=== PATIENT | female | born 1965 | race Caucasian/White ===

== ENCOUNTER → 2016-11-20 | Outpatient (CLI) | payer MEDICARE, BC ==
[2016-11-20 08:39] LABS: CH 33.6; CHCM 31.5; HCT 46.2 % (34.0-46.0); HDW 2.56; HGB 14.5 gm/dL (11.4-16.0); Hypochromasia Slight; MCH 33.6 pg (25.0-35.0); MCHC 31.4 g/dL (31.0-37.0); MCV 107.2 fL (80.0-100.0); Macrocytosis Marked; Mean Platelet Volume 7.9; RBC 4.31 m/uL (3.80-5.40); RDW 15.9 % (11.5-15.5); WBC 8.9 k/uL (3.8-10.6)
[2016-11-20 08:43] LABS: ALT 58 U/L (9-52); AST 37 U/L (14-36); Alkaline Phosphatase 89 U/L (38-126); Anion Gap 9 mmol/L; Blood Urea Nitrogen 18 mg/dL (7-17); Calcium 8.7 mg/dL (8.4-10.2); Carbon Dioxide 32 mmol/L (22-30); Chloride 103 mmol/L (98-107); Cholesterol 235 mg/dL (<200); Glucose 85 mg/dL (74-99); HDL Cholesterol 56 mg/dL (40-60); Non-African American GFR(MDRD) >60 (>60 ml/min/1.73 sqM); Potassium 4.3 mmol/L (3.5-5.1); Sodium 144 mmol/L (137-145); Total Bilirubin 0.7 mg/dL (0.2-1.3); Total Protein 7.3 g/dL (6.3-8.2); Triglycerides 186 mg/dL (<150)
[2016-11-20 08:59] LABS: Appearance,Urine Cloudy (Clear); Bacteria,Urine Rare /hpf; Bilirubin,Urine Negative (Negative); Glucose,Urine (UA) Negative (Negative); Ketones,Urine Negative (Negative); Leukocyte Esterase,Urine Small (Negative); Mucus,Urine Rare /hpf; Nitrite,Urine Negative (Negative); PH, Urine 5.5 (5.0-8.0); Particle Count 8940; Protein,Urine Trace (Negative); Specific Gravity,Urine 1.022 (1.001-1.035); Squamous Epithelial Cell,Urine 12 /hpf (0-4); UA Billing (MACRO vs. MICRO) MICRO; Urobilinogen,Urine <2.0 mg/dL (<2.0); WBC,Urine 5 /hpf (0-5)
--- NOTE | 2016-11-20 09:18 | XR ---
EXAMINATION TYPE: XR chest 2V DATE OF EXAM: 11/20/2016 8:32 AM COMPARISON: Chest x-ray 22 April 2012 HISTORY: COPD TECHNIQUE: Frontal and lateral views of the chest are obtained. FINDINGS: Lung volumes are low. Heart size is accentuated. No pneumothorax or pleural effusion is ev ident. Patchy basilar density is present. Pulmonary vascularity and jackie not significantly changed. IMPRESSION: Expiratory exam, findings suggest basilar atelectasis versus pneumonia. Follow-up is rec ommended.
== END | disposition home or self-care (01) ==
LOC: LABWHC1 07:50
PROVIDERS: ATTEND Internal Medicine
DX: J44.9 Chronic obstructive pulmonary disease, unspecified (principal); Z00.00 Encounter for general adult medical examination without abnormal findings; I11.9 Hypertensive heart disease without heart failure; E03.9 Hypothyroidism, unspecified; R35.0 Frequency of micturition
CPT/HCPCS: 36415; 71020; 80053; 80061; 81001; 84439; 84443; 85027

== ENCOUNTER → 2017-04-22 | Outpatient (CLI) | payer MEDICARE, BC | END | disposition home or self-care (01) | LOC: LABWHC1 11:57 | PROVIDERS: ATTEND Internal Medicine | DX: E03.9 Hypothyroidism, unspecified (principal) | CPT/HCPCS: 36415; 84439; 84443 ==

== ENCOUNTER → 2018-02-15 | Outpatient (CLI) | payer MEDICARE, BC ==
[2018-02-15 09:03] LABS: HCT 43.8 % (34.0-46.0); HGB 13.7 gm/dL (11.4-16.0); MCH 31.7 pg (25.0-35.0); MCHC 31.3 g/dL (31.0-37.0); MCV 101.4 fL (80.0-100.0); Macrocytosis Slight; Mean Platelet Volume 8.2; Platelet Count 258 k/uL (150-450); RBC 4.32 m/uL (3.80-5.40); RDW 14.4 % (11.5-15.5); WBC 9.1 k/uL (3.8-10.6)
[2018-02-15 09:58] LABS: ALT 30 U/L (9-52); AST 22 U/L (14-36); Albumin 3.5 g/dL (3.5-5.0); Alkaline Phosphatase 94 U/L (38-126); Anion Gap 9 mmol/L; Blood Urea Nitrogen 14 mg/dL (7-17); Calcium 8.8 mg/dL (8.4-10.2); Carbon Dioxide 32 mmol/L (22-30); Chloride 104 mmol/L (98-107); Cholesterol 179 mg/dL (<200); Glucose 88 mg/dL (74-99); HDL Cholesterol 49 mg/dL (40-60); LDL Cholesterol,Calculated 98 mg/dL (0-99); Potassium 4.2 mmol/L (3.5-5.1); Sodium 145 mmol/L (137-145); Total Bilirubin 0.4 mg/dL (0.2-1.3); Total Protein 6.7 g/dL (6.3-8.2); Triglycerides 158 mg/dL (<150)
[2018-02-15 10:10] LABS: T4, Free (Free Thyroxine) 1.22 ng/dL (0.78-2.19)
== END | disposition home or self-care (01) ==
LOC: LABWHC1 08:17
PROVIDERS: ATTEND Internal Medicine
DX: Z00.01 Encounter for general adult medical examination with abnormal findings (principal); E03.9 Hypothyroidism, unspecified; E78.2 Mixed hyperlipidemia; J44.9 Chronic obstructive pulmonary disease, unspecified; E66.1 Drug-induced obesity
CPT/HCPCS: 36415; 80053; 80061; 84439; 84443; 85027

== ENCOUNTER → 2018-07-08 | Outpatient (CLI) | payer MEDICARE, BC ==
--- NOTE | 2018-07-09 12:09 | MM ---
Reason for exam: screening (asymptomatic). Last mammogram was performed 2 years and 7 months ago. History: Patient is postmenopausal and is nulliparous. Physical Findings: A clinical breast exam by your physician is recommended on an annual basis and results should be correlated with mammographic findings. MG Screening Mammo w CAD Bilateral CC and MLO view(s) were taken. Prior study comparison: November 23, 2015, bilateral MG screening mammo w CAD. March 31, 2014, bilateral MG screening mammo w CAD. There are scattered fibroglandular densities. Stable benign calcifications. There is no discrete abnormality. No significant changes when compared with prior studies. ASSESSMENT: Benign, BI-RAD 2 RECOMMENDATION: Routine screening mammogram of both breasts in 1 year.
== END | disposition home or self-care (01) ==
LOC: RADMAMWWP 14:18 → EEVIPCON 14:40
PROVIDERS: ATTEND Internal Medicine
DX: Z12.31 Encounter for screening mammogram for malignant neoplasm of breast (principal); K21.0 Gastro-esophageal reflux disease with esophagitis
CPT/HCPCS: 77067; 82272

== ENCOUNTER → 2019-03-25 | Outpatient (CLI) | payer MEDICARE, BC ==
[2019-03-25 08:51] LABS: HCT 50.6 % (34.0-46.0); HGB 15.6 gm/dL (11.4-16.0); Hypochromasia Slight; MCHC 30.8 g/dL (31.0-37.0); MCV 103.8 fL (80.0-100.0); Macrocytosis Slight; Mean Platelet Volume 8.4; Platelet Count 271 k/uL (150-450); RBC 4.87 m/uL (3.80-5.40); RDW 15.4 % (11.5-15.5); WBC 9.1 k/uL (3.8-10.6)
[2019-03-25 17:06] LABS: Albumin 3.9 g/dL (3.80-4.90); Albumin/Globulin Ratio 1.39 (1.60-3.17); Anion Gap 11.5 mmol/L (4.00-12.00); Carbon Dioxide 26.5 mmol/L (21.6-31.8); Globulin 2.8 g/dL (1.6-3.3); LDL Cholesterol,Calculated 114.8 mg/dL (0.0-131.0); Potassium 4.3 mmol/L (3.5-5.5); Total Bilirubin 0.3 mg/dL (0.2-1.2); Total Protein 6.7 g/dL (6.2-8.2); VLDL Calculation 23.2 mg/dL (5.00-40.00)
[2019-03-25 17:13] LABS: T4, Free (Free Thyroxine) 1.6 ng/dL (0.80-1.80)
== END | disposition home or self-care (01) ==
LOC: LABWHC1 08:24
PROVIDERS: ATTEND Internal Medicine
DX: Z00.00 Encounter for general adult medical examination without abnormal findings (principal); E03.9 Hypothyroidism, unspecified; E66.1 Drug-induced obesity; E78.2 Mixed hyperlipidemia
CPT/HCPCS: 36415; 80053; 80061; 84439; 84443; 85027

== ENCOUNTER → 2020-06-28 | Outpatient (CLI) | payer MEDICARE, BC ==
[2020-06-28 08:49] LABS: Basophils # (A) 0.1 k/uL (0-0.2); Basophils % (A) 1 %; Eosinophils # (A) 0.2 k/uL (0-0.7); Eosinophils % (A) 2 %; HCT 46.8 % (34.0-46.0); HGB 14.7 gm/dL (11.4-16.0); Lymphocytes # (A) 2.1 k/uL (1.0-4.8); Lymphocytes % (A) 22 %; MCH 32.2 pg (25.0-35.0); MCHC 31.4 g/dL (31.0-37.0); MCV 102.6 fL (80.0-100.0); Macrocytosis Slight; Mean Platelet Volume 8.8; Monocytes # (A) 0.8 k/uL (0-1.0); Monocytes % (A) 9 %; Neutrophils # (A) 6.1 k/uL (1.3-7.7); Neutrophils % (A) 64 %; Platelet Count 211 k/uL (150-450); RBC 4.56 m/uL (3.80-5.40); RDW 14.1 % (11.5-15.5); WBC 9.6 k/uL (3.8-10.6)
[2020-06-28 15:51] LABS: Albumin 3.8 g/dL (3.80-4.90); Albumin/Globulin Ratio 1.27 (1.60-3.17); BUN/Creat Ratio 14.44 Ratio (12.00-20.00); Calcium 8.8 mg/dL (8.7-10.3); Chol/HDL Ratio 3.89; LDL Cholesterol,Calculated 104.6 mg/dL (0.0-131.0); Non-African American GFR(CKD) 72.5 (60.0-200.0); Potassium 4.5 mmol/L (3.5-5.5); Total Bilirubin 0.4 mg/dL (0.2-1.2); Total Protein 6.8 g/dL (6.2-8.2); VLDL Calculation 28.4 mg/dL (5.00-40.00)
== END | disposition home or self-care (01) ==
LOC: LABWHC1 08:06
PROVIDERS: ATTEND Internal Medicine Critical Care Medicine
DX: E78.5 Hyperlipidemia, unspecified (principal); E03.9 Hypothyroidism, unspecified
CPT/HCPCS: 36415; 80053; 80061; 84443; 85025

== ENCOUNTER → 2020-08-23 | Outpatient (CLI) | payer MEDICARE, BC ==
--- NOTE | 2020-08-23 20:40 | CT ---
EXAMINATION TYPE: CT brain wo con DATE OF EXAM: 08/23/2020 HISTORY: Altered mental status and weakness. CT DLP: 1071.1 mGycm. Automated Exposure Control for Dose Reduction was Utilized. TECHNIQUE: CT scan of the head is performed without contrast. COMPARISON: None. FINDINGS: There is no acute intracranial hemorrhage or midline shift identified. There is diffuse v entricular and sulcal prominence consistent with diffuse age-related cerebral atrophy. Calcification s noted in the bilateral cerebellar hemisphere and basal ganglia along with lesion of the head of cau date nuclei bilaterally. Somewhat small caliber right maxillary sinus with mild to moderate mucosal t hickening and patchy central opacification. There are hypoplastic or nonformed bilateral frontal si nuses. Marked soft tissue density throughout to reflects cerumen is seen in bilateral external audito ry canals, correlate clinically with direct clinical physical exam. Unfused posterior ring C1 level n oted. IMPRESSION: No acute intracranial hemorrhage or midline shift. There is fairly moderate diffuse cer ebral atrophy and acute on chronic right maxillary sinus disease. Intraparenchymal calcifications, c orrelate clinically for Fahr syndrome.
== END | disposition home or self-care (01) ==
LOC: RADCTMAIN 14:57
PROVIDERS: ATTEND Internal Medicine Critical Care Medicine
DX: J32.0 Chronic maxillary sinusitis (principal); G31.1 Senile degeneration of brain, not elsewhere classified; R41.82 Altered mental status, unspecified
CPT/HCPCS: 70450

== ENCOUNTER 2021-01-09 12:22 | Inpatient (IN) | payer MEDICARE, BC ==
--- NOTE | 2021-01-09 13:25 | ED ---
Fall HPI - General Chief Complaint: Fall Stated Complaint: Fall Time Seen by Provider: 01/09/21 13:01 Source: patient, family (sister), EMS Mode of arrival: EMS Limitations: language barrier (pt normally non-verbal) - History of Present Illness Initial Comments: 55-year-old white female patient in no acute distress brought in by sister who has served as her caregiver for the past 19 years. Patient normally nonverbal, for past year has been incontinent of urine and stool. Family states patient has dementia and has history of Down syndrome, hypothyroidism, high cholesterol, and dementia. Sister brought patient in today because she was sitting on a chair leaning forward on a tray and when she came back into the room patient was laying face first on floor. No LOC. Patient too weak to get up on her own and family had a hard time getting her up. Family has brought patient to the emergency room to help with assisted placement. Patient sees Dr. Pratt pulmonology was also been working as her primary care doctor. 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 Witnessed: no Place Fall Occurred: home Loss of Consciousness: none Prolonged Down Time?: no Location: face Severity: mild (pt unable to verbalize pain) - Related Data Home Medications Medication Instructions Recorded Confirmed Albuterol Nebulized [Ventolin 2.5 mg INHALATION RT-BID 01/09/21 01/09/21 Nebulized] Levothyroxine Sodium [Synthroid] 125 mcg PO DAILY 01/09/21 01/09/21 Montelukast [Singulair] 10 mg PO HS 01/09/21 01/09/21 Multivitamin/Iron/Folic Acid 1 tab PO DAILY 01/09/21 01/09/21 [Centrum Women Tablet] Potassium Chloride ER [K-Dur 10] 10 meq PO DAILY 01/09/21 01/09/21 Simvastatin [Zocor] 20 mg PO HS 01/09/21 01/09/21 Allergies Allergy/AdvReac Type Severity Reaction Status Date / Time No Known Allergies Allergy Verified 01/09/21 14:12 Review of Systems ROS Statement: Those systems with pertinent positive or pertinent negative responses have been documented in the HPI. ROS Other: All systems not noted in ROS Statement are negative. Past Medical History Additional Past Medical History / Comment(s): Down syndrome, high cholestrol, allergies, thryoid. pt not verbal, no staff or guardian during arrival in . History of Any Multi-Drug Resistant Organisms: None Reported Past Surgical History: No Surgical Hx Reported Additional Past Surgical History / Comment(s): pt non verbal, no staff or guardian to provide info. Past Psychological History: No Psychological Hx Reported Smoking Status: Never smoker Past Alcohol Use History: None Reported Past Drug Use History: None Reported General Exam Limitations: no limitations, altered mental status General appearance: alert, in no apparent distress Head exam: Present: other (abrasion to nose) Eye exam: Present: normal appearance, PERRL, EOMI, other (yellow drainage from right eye toda). Absent: scleral icterus, conjunctival injection, periorbital swelling ENT exam: Present: normal exam, mucous membranes moist Neck exam: Present: full ROM, thyromegaly. Absent: tenderness, meningismus Respiratory exam: Present: normal lung sounds bilaterally. Absent: respiratory distress, wheezes, rales, rhonchi, stridor Cardiovascular Exam: Present: regular rate, normal rhythm, normal heart sounds. Absent: systolic murmur, diastolic murmur, rubs, gallop, clicks GI/Abdominal exam: Present: soft (ate breakfast with yogurt per sister), normal bowel sounds. Absent: distended, tenderness, guarding, rebound, rigid Psychiatric exam: Present: normal affect, normal mood Skin exam: Present: warm, dry, intact, normal color, abrasion (nose from glasses s/p fall today). Absent: rash Course Vital Signs 01/09/21 01/09/21 01/09/21 12:24 15:00 16:09 Temperature 99.0 F Pulse Rate 72 74 78 Respiratory 18 20 20 Rate Blood Pressure 107/72 118/81 120/78 O2 Sat by Pulse 98 98 98 Oximetry Medical Decision Making - Medical Decision Making Discussed case with Dr. Webb, Will admit patient for placement. - Lab Data Result diagrams: 01/09/21 13:21 01/09/21 13:21 Lab Results 01/09/21 01/09/21 01/09/21 Range/Units 13:21 13:21 13:40 WBC 16.3 H (3.8-10.6) k/uL RBC 4.55 (3.80-5.40) m/uL Hgb 14.9 (11.4-16.0) gm/dL Hct 46.2 H (34.0-46.0) % MCV 101.5 H (80.0-100.0) fL MCH 32.7 (25.0-35.0) pg MCHC 32.2 (31.0-37.0) g/dL RDW 13.7 (11.5-15.5) % Plt Count 272 (150-450) k/uL MPV 8.4 Neutrophils % 75 % Lymphocytes % 14 % Monocytes % 9 % Eosinophils % 0 % Basophils % 1 % Neutrophils # 12.1 H (1.3-7.7) k/uL Lymphocytes # 2.3 (1.0-4.8) k/uL Monocytes # 1.4 H (0-1.0) k/uL Eosinophils # 0.0 (0-0.7) k/uL Basophils # 0.1 (0-0.2) k/uL Macrocytosis Slight Sodium 140 (137-145) mmol/L Potassium 4.4 (3.5-5.1) mmol/L Chloride 104 (98-107) mmol/L Carbon Dioxide 31 H (22-30) mmol/L Anion Gap 5 mmol/L BUN 15 (7-17) mg/dL Creatinine 0.96 (0.52-1.04) mg/dL Est GFR (CKD-EPI)AfAm 77 (>60 ml/min/1.73 sqM) Est GFR (CKD-EPI)NonAf 67 (>60 ml/min/1.73 sqM) Glucose 96 (74-99) mg/dL Calcium 9.2 (8.4-10.2) mg/dL Urine Color Yellow Urine Appearance Clear (Clear) Urine pH 7.0 (5.0-8.0) Ur Specific [place] 1.025 (1.001-1.035) Urine Protein Trace H (Negative) Urine Glucose (UA) Negative (Negative) Urine Ketones Negative (Negative) Urine Blood Negative (Negative) Urine Nitrite Negative (Negative) Urine Bilirubin Negative (Negative) Urine Urobilinogen <2.0 (<2.0) mg/dL Ur Leukocyte Esterase Trace H (Negative) Urine RBC 2 (0-5) /hpf Urine WBC 5 (0-5) /hpf Hyaline Casts 1 (0-2) /lpf Urine Mucus Occasional H (None) /hpf Coronavirus (PCR) (Not Detectd) 01/09/21 Range/Units 16:17 WBC (3.8-10.6) k/uL RBC (3.80-5.40) m/uL Hgb (11.4-16.0) gm/dL Hct (34.0-46.0) % MCV (80.0-100.0) fL MCH (25.0-35.0) pg MCHC (31.0-37.0) g/dL RDW (11.5-15.5) % Plt Count (150-450) k/uL MPV Neutrophils % % Lymphocytes % % Monocytes % % Eosinophils % % Basophils % % Neutrophils # (1.3-7.7) k/uL Lymphocytes # (1.0-4.8) k/uL Monocytes # (0-1.0) k/uL Eosinophils # (0-0.7) k/uL Basophils # (0-0.2) k/uL Macrocytosis Sodium (137-145) mmol/L Potassium (3.5-5.1) mmol/L Chloride (98-107) mmol/L Carbon Dioxide (22-30) mmol/L Anion Gap mmol/L BUN (7-17) mg/dL Creatinine (0.52-1.04) mg/dL Est GFR (CKD-EPI)AfAm (>60 ml/min/1.73 sqM) Est GFR (CKD-EPI)NonAf (>60 ml/min/1.73 sqM) Glucose (74-99) mg/dL Calcium (8.4-10.2) mg/dL Urine Color Urine Appearance (Clear) Urine pH (5.0-8.0) Ur Specific [place] (1.001-1.035) Urine Protein (Negative) Urine Glucose (UA) (Negative) Urine Ketones (Negative) Urine Blood (Negative) Urine Nitrite (Negative) Urine Bilirubin (Negative) Urine Urobilinogen (<2.0) mg/dL Ur Leukocyte Esterase (Negative) Urine RBC (0-5) /hpf Urine WBC (0-5) /hpf Hyaline Casts (0-2) /lpf Urine Mucus (None) /hpf Coronavirus (PCR) Not Detected (Not Detectd) Disposition Clinical Impression: Frequent falls Disposition: ADMITTED IP TO THIS HOSP Condition: Good Is patient prescribed a controlled substance at d/c from ED?: No Referrals: Juan Pratt MD [Primary Care Provider] - 1-2 days Decision Date: 01/09/21 Decision Time: 17:48
[2021-01-09 13:45] LABS: Basophils # (A) 0.1 k/uL (0-0.2); Basophils % (A) 1 %; Eosinophils % (A) 0 %; HCT 46.2 % (34.0-46.0); HGB 14.9 gm/dL (11.4-16.0); Lymphocytes # (A) 2.3 k/uL (1.0-4.8); Lymphocytes % (A) 14 %; MCH 32.7 pg (25.0-35.0); MCHC 32.2 g/dL (31.0-37.0); MCV 101.5 fL (80.0-100.0); Macrocytosis Slight; Mean Platelet Volume 8.4; Monocytes # (A) 1.4 k/uL (0-1.0); Monocytes % (A) 9 %; Neutrophils # (A) 12.1 k/uL (1.3-7.7); Neutrophils % (A) 75 %; Platelet Count 272 k/uL (150-450); RBC 4.55 m/uL (3.80-5.40); RDW 13.7 % (11.5-15.5); WBC 16.3 k/uL (3.8-10.6)
[2021-01-09 13:50] LABS: Calcium 9.2 mg/dL (8.4-10.2); Potassium 4.4 mmol/L (3.5-5.1)
[2021-01-09 13:53] LABS: Appearance,Urine Clear (Clear); Bilirubin,Urine Negative (Negative); Blood,Urine Negative (Negative); Color,Urine Yellow; Glucose,Urine (UA) Negative (Negative); Hyaline Casts,Urine 1 /lpf (0-2); Ketones,Urine Negative (Negative); Leukocyte Esterase,Urine Trace (Negative); Mucus,Urine Occasional /hpf; Nitrite,Urine Negative (Negative); Protein,Urine Trace (Negative); RBC,Urine 2 /hpf (0-5); Specific Gravity,Urine 1.025 (1.001-1.035); Urobilinogen,Urine <2.0 mg/dL (<2.0); WBC,Urine 5 /hpf (0-5)
--- NOTE | 2021-01-09 15:42 | XR ---
EXAMINATION TYPE: XR chest 2V DATE OF EXAM: 01/09/2021 COMPARISON: Chest x-ray November 20, 2016 HISTORY: Weakness. Leukocytosis. TECHNIQUE: Frontal and lateral views of the chest are obtained. FINDINGS: There is low lung volumes and mild cardiomegaly with mild central vascular congestion. N o new peripheral focal airspace opacity, pleural effusion, or pneumothorax seen bilaterally The osseo us structures remain intact. IMPRESSION: Correlate for CHF exacerbations as there is mild cardiomegaly with mild central vascular congestion redemonstrated. No significant change from prior.
[2021-01-09] MEDS ORDERED: NALOXONE 0.4 MG/ML 1 ML VIAL IV PRN (17:48)
[2021-01-09] MEDS ORDERED: ALBUTEROL NEBULIZED 2.5 MG/3 ML INHALATION PRN (21:58)
--- NOTE | 2021-01-09 22:01 | P.HPIM ---
History of Present Illness This is a pleasant 55 years old female with past medical history of Down syndrome, patient is known verbal at baseline and she has a guardian. She follows up with Dr. 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 Patient is poor historian and could not provide information and history was taken from her sister Macie at bedside. stays patient is non-verbal for long time, over the last few months also she becoming more difficult to take care for, she does not ask for food if she is hungry, she does not ask to be clean and she does not recognize the people around her. As per sister today patient fell from her chair and family cannot take care of her and they ask for placement As per my conversation with the sister this is mildly end-stage dementia given her history of Down syndrome at 55 years old, I offered palliative consult or hospice team CONSULT, THE PATIENT SISTER DOES NOT PURSUE THIS DIRECTION NOW BUT WE WILL CONSIDER IT Vitas looks stable with temperature 99.0. She is saturating 98% on room air Labs showed leukocytosis of 16.3 K. Rest of CBC, BMP is unremarkable. Urine analysis is not suspicious of infection Review of Systems n/a, patient is nonverbal at baseline Past Medical History Additional Past Medical History / Comment(s): Down syndrome, high cholestrol, allergies, thryoid. pt not verbal, no staff or guardian during arrival in . History of Any Multi-Drug Resistant Organisms: None Reported Past Surgical History: No Surgical Hx Reported Additional Past Surgical History / Comment(s): pt non verbal, no staff or guardian to provide info. Past Psychological History: No Psychological Hx Reported Smoking Status: Never smoker Past Alcohol Use History: None Reported Past Drug Use History: None Reported Medications and Allergies Home Medications Medication Instructions Recorded Confirmed Type Albuterol Nebulized [Ventolin 2.5 mg INHALATION RT-BID 01/09/21 01/09/21 History Nebulized] Levothyroxine Sodium [Synthroid] 125 mcg PO DAILY 01/09/21 01/09/21 History Montelukast [Singulair] 10 mg PO HS 01/09/21 01/09/21 History Multivitamin/Iron/Folic Acid 1 tab PO DAILY 01/09/21 01/09/21 History [Centrum Women Tablet] Potassium Chloride ER [K-Dur 10] 10 meq PO DAILY 01/09/21 01/09/21 History Simvastatin [Zocor] 20 mg PO HS 01/09/21 01/09/21 History Allergies Allergy/AdvReac Type Severity Reaction Status Date / Time No Known Allergies Allergy Verified 01/09/21 14:12 Physical Exam Vitals: Vital Signs Temp Pulse Resp BP Pulse Ox 01/09/21 12:24 99.0 F 72 18 107/72 98 Intake and Output 01/08/21 01/09/21 01/09/21 22:59 06:59 14:59 Other: Weight 69.672 kg -GENERAL: The patient is calm, nonverbal, does not follow command. Obese -HEENT: Pupils are round and equally reacting to light. EOMI. No scleral icterus. No conjunctival pallor. Normocephalic, atraumatic. No pharyngeal erythema. No thyromegaly. CARDIOVASCULAR: S1 and S2 present. No murmurs, rubs, or gallops. Denies PULMONARY: Chest is clear to auscultation, no wheezing or crackles. ABDOMEN: Soft, nontender, nondistended, normoactive bowel sounds. No palpable organomegaly. MUSCULOSKELETAL: No joint swelling or deformity. EXTREMITIES: No cyanosis, clubbing, or pedal edema. NEUROLOGICAL: Gross neurological examination did not reveal any focal deficits. SKIN: No rashes. No petechiae Results CBC & Chem 7: 01/09/21 13:21 01/09/21 13:21 Labs: Abnormal Lab Results - Last 24 Hours (Table) 01/09/21 01/09/21 01/09/21 Range/Units 13:21 13:21 13:40 WBC 16.3 H (3.8-10.6) k/uL Hct 46.2 H (34.0-46.0) % MCV 101.5 H (80.0-100.0) fL Neutrophils # 12.1 H (1.3-7.7) k/uL Monocytes # 1.4 H (0-1.0) k/uL Carbon Dioxide 31 H (22-30) mmol/L Urine Protein Trace H (Negative) Ur Leukocyte Esterase Trace H (Negative) Urine Mucus Occasional H (None) /hpf Assessment and Plan Assessment: Fall from wheelchair Generalized weakness with family inability taking care of her, needs placement Leukocytosis, rule out infection Down syndrome advanced dementia and possible end-stage dementia, patient is nonverbal and she has a legal guardian Obesity Plan: This is a pleasant 55 years old female with Down syndrome, nonverbal comes with fall. Consult manager social responsibility for possible placement as family are and able to take care of her. We will do some infectious workup for her leukocytosis Labs and medication were reviewed.. Continue same treatment. Continue with sym ptomatic treatment. Resume home medication. Monitor lytes and vitals. DVT and GI prophylaxis. Further recommendations depends on the clinical course of the patient DVT prophylaxis: Subcutaneous heparin GI Prophylaxis: no need PT/OT: no need, pt can not participate or follows commands, needs placement Prognosis is guarded
[2021-01-10] MEDS: HEPARIN SODIUM,PORCINE 5,000 UNIT/ML 1 ML VIAL SQ SCH ×3 (02:38→20:28)
[2021-01-10] MEDS: LEVOTHYROXINE 125 MCG TAB PO SCH (05:57)
[2021-01-10 09:16] LABS: HCT 40.4 % (37.2-46.3); HGB 13.5 g/dL (12.0-15.0); MCH 33.9 pg (27.0-32.0); MCHC 33.4 g/dL (32.0-37.0); MCV 101.5 fL (80.0-97.0); Mean Platelet Volume 11.9 fL (9.5-12.2); Platelet Count 234 X 10*3/uL (140-440); RBC 3.98 X 10*6/uL (4.10-5.20); RDW 14.3 % (11.5-14.5); WBC 11.78 X 10*3/uL (4.50-10.00)
[2021-01-10 10:40] LABS: Basophils # (A) 0.07 X 10*3/uL (0.00-0.10); Basophils % (A) 0.6 %; Eosinophils # (A) 0.09 X 10*3/uL (0.04-0.35); Eosinophils % (A) 0.8 %; Lymphocytes # (A) 2.72 X 10*3/uL (0.90-5.00); Lymphocytes % (A) 23.1 %; Monocytes # (A) 1.63 X 10*3/uL (0.20-1.00); Monocytes % (A) 13.8 %; Neutrophils # (A) 7.23 X 10*3/uL (1.80-7.70); Neutrophils % (A) 61.4 %
[2021-01-10 11:25] VITALS: BMI 31.0
--- NOTE | 2021-01-10 12:28 | P.PN ---
Subjective This is a pleasant 55 years old female with past medical history of Down syndrome, patient is known verbal at baseline and she has a guardian. She follows up with Dr. Pratt is her senior living advisor and PCP. Patient is poor historian and could not provide information and history was taken from her sister Macie at bedside. stays patient is non-verbal for long time, over the last few months also she becoming more difficult to take care for, she does not ask for food if she is hungry, she does not ask to be clean and she does not recognize the people around her. As per sister today patient fell from her chair and family cannot take care of her and they ask for placement As per my conversation with the sister this is mildly end-stage dementia given her history of Down syndrome at 55 years old, I offered palliative consult or hospice team CONSULT, THE PATIENT SISTER DOES NOT PURSUE THIS DIRECTION NOW BUT WE WILL CONSIDER IT Vitas looks stable with temperature 99.0. She is saturating 98% on room air Labs showed leukocytosis of 16.3 K. Rest of CBC, BMP is unremarkable. Urine analysis is not suspicious of infection 01/10/2021 Patient is nonverbal at baseline, she was sleepy this morning. No change or new complaints clinically. Patient is afebrile, and risks of Vitas looks stable. Her pronecalcitonin is a slightly elevated at 0.15. She still have leukocytosis at 11.7 compared to 16.3 yesterday. Possible infection, unsure about the source. Possible pneumonia. We will contact start patient on Augmentin Discussed with bed side nurse and public health social worker, patient may need 3 days of inpatient stay for placement of ECF. Review of Systems n/a, patient is nonverbal at baseline Active Medications Generic Name Dose Route Start Last Admin Trade Name Freq PRN Reason Stop Dose Admin Albuterol Sulfate 2.5 mg 01/09/21 21:58 Albuterol Nebulized 2.5 Mg/3 Ml INHALATION RT-BID PRN Shortness Of Breath Or Wheezing Heparin Sodium (Porcine) 5,000 unit 01/09/21 22:00 01/10/21 08:50 Heparin Sodium,Porcine 5,000 Unit/Ml 1 Ml Vial SQ 5,000 unit Q12HR LORA Administration Levothyroxine Sodium 125 mcg 01/10/21 06:30 01/10/21 05:57 Levothyroxine 125 Mcg Tab PO 125 mcg DAILY@0630 LORA Administration Montelukast Sodium 10 mg 01/10/21 21:00 Montelukast 10 Mg Tab PO HS LORA Naloxone HCl 0.2 mg 01/09/21 17:48 Naloxone 0.4 Mg/Ml 1 Ml Vial IV Q2M PRN Opioid Reversal Objective - Vital Signs Vital signs: Vital Signs Temp 99.1 F 01/10/21 07:19 Pulse 75 01/10/21 07:19 Resp 18 01/10/21 07:19 BP 135/73 01/10/21 07:19 Pulse Ox 91 L 01/10/21 07:19 Intake & Output 01/09/21 01/10/21 01/10/21 18:59 06:59 18:59 Weight 69.672 kg 69.672 kg Other: Voiding Method Bedside Commode Diaper # Bowel Movements 1 - Labs CBC & Chem 7: 01/10/21 03:55 01/09/21 13:21 Labs: Abnormal Lab Results - Last 24 Hours (Table) 01/09/21 01/09/21 01/09/21 Range/Units 13:21 13:21 13:40 WBC 16.3 H (3.8-10.6) k/uL RBC (4.10-5.20) X 10*6/uL Hct 46.2 H (34.0-46.0) % MCV 101.5 H (80.0-100.0) fL MCH (27.0-32.0) pg Neutrophils # 12.1 H (1.3-7.7) k/uL Monocytes # 1.4 H (0-1.0) k/uL Carbon Dioxide 31 H (22-30) mmol/L Procalcitonin (0.02-0.09) ng/mL Urine Protein Trace H (Negative) Ur Leukocyte Esterase Trace H (Negative) Urine Mucus Occasional H (None) /hpf 01/10/21 01/10/21 Range/Units 03:55 03:55 WBC 11.78 H (3.8-10.6) k/uL RBC 3.98 L (4.10-5.20) X 10*6/uL Hct (34.0-46.0) % MCV 101.5 H (80.0-100.0) fL MCH 33.9 H (27.0-32.0) pg Neutrophils # (1.3-7.7) k/uL Monocytes # 1.63 H (0-1.0) k/uL Carbon Dioxide (22-30) mmol/L Procalcitonin 0.15 H (0.02-0.09) ng/mL Urine Protein (Negative) Ur Leukocyte Esterase (Negative) Urine Mucus (None) /hpf Assessment and Plan Assessment: Fall from wheelchair Generalized weakness with family inability taking care of her, needs placement Leukocytosis, rule out infection Down syndrome advanced dementia and possible end-stage dementia, patient is nonverbal and she has a legal guardian Obesity Plan: This is a pleasant 55 years old female with Down syndrome, nonverbal comes with fall. Consult public health social worker for possible placement as family are and able to take care of her. Patient was possible infection, mild, unknown source possible pneumonia. With leukocytosis. Augmentin is a started Continue same treatment. Continue with symptomatic treatment. Resume home medication. Monitor lytes and vitals. DVT and GI prophylaxis. Further recommendations depends on the clinical course of the patient DVT prophylaxis: Subcutaneous heparin GI Prophylaxis: no need PT/OT: no need, pt can not participate or follows commands, needs placement Prognosis is guarded I think patient is eligible for palliative team evaluation as inpatient or outpatient and family agree. Already discussed with family/sister Macie
[2021-01-10] MEDS: AMOXIC-POT CLAV 875-125MG 1 EACH TAB PO SCH ×2 (14:06→20:28)
[2021-01-10] MEDS: MONTELUKAST 10 MG TAB PO SCH (20:28)
[2021-01-11] MEDS: LEVOTHYROXINE 125 MCG TAB PO SCH (05:47)
[2021-01-11] MEDS: HEPARIN SODIUM,PORCINE 5,000 UNIT/ML 1 ML VIAL SQ SCH ×2 (07:56→20:18)
[2021-01-11] MEDS: AMOXIC-POT CLAV 875-125MG 1 EACH TAB PO SCH ×2 (07:57→20:18)
[2021-01-11 09:13] LABS: Basophils # (A) 0.06 X 10*3/uL (0.00-0.10); Basophils % (A) 0.4 %; Eosinophils # (A) 0.12 X 10*3/uL (0.04-0.35); Eosinophils % (A) 0.9 %; HCT 42.1 % (37.2-46.3); HGB 13.4 g/dL (12.0-15.0); Lymphocytes # (A) 2.29 X 10*3/uL (0.90-5.00); Lymphocytes % (A) 17.1 %; MCH 32.4 pg (27.0-32.0); MCHC 31.8 g/dL (32.0-37.0); MCV 101.9 fL (80.0-97.0); Mean Platelet Volume 11.7 fL (9.5-12.2); Monocytes # (A) 1.86 X 10*3/uL (0.20-1.00); Monocytes % (A) 13.8 %; Neutrophils # (A) 9.04 X 10*3/uL (1.80-7.70); Neutrophils % (A) 67.4 %; Platelet Count 227 X 10*3/uL (140-440); RBC 4.13 X 10*6/uL (4.10-5.20); RDW 14.5 % (11.5-14.5); WBC 13.43 X 10*3/uL (4.50-10.00)
[2021-01-11] MEDS ORDERED: FUROSEMIDE 10 MG/ML 2 ML VIAL IV STA (16:09)
--- NOTE | 2021-01-11 16:11 | P.PN ---
Subjective This is a pleasant 55 years old female with past medical history of Down syndrome, patient is known verbal at baseline and she has a guardian. She follows up with Dr. Pratt is her chief radiologic technologist and PCP. Patient is poor historian and could not provide information and history was taken from her sister Macie at bedside. stays patient is non-verbal for long time, over the last few months also she becoming more difficult to take care for, she does not ask for food if she is hungry, she does not ask to be clean and she does not recognize the people around her. As per sister today patient fell from her chair and family cannot take care of her and they ask for placement As per my conversation with the sister this is mildly end-stage dementia given her history of Down syndrome at 55 years old, I offered palliative consult or hospice team CONSULT, THE PATIENT SISTER DOES NOT PURSUE THIS DIRECTION NOW BUT WE WILL CONSIDER IT Vitas looks stable with temperature 99.0. She is saturating 98% on room air Labs showed leukocytosis of 16.3 K. Rest of CBC, BMP is unremarkable. Urine analysis is not suspicious of infection 01/10/2021 Patient is nonverbal at baseline, she was sleepy this morning. No change or new complaints clinically. Patient is afebrile, and risks of Vitas looks stable. Her pronecalcitonin is a slightly elevated at 0.15. She still have leukocytosis at 11.7 compared to 16.3 yesterday. Possible infection, unsure about the source. Possible pneumonia. We will contact start patient on Augmentin Discussed with bed side nurse and manager social services, patient may need 3 days of inpatient stay for placement of ECF. 01/11/2021 Patient is more awake and sitting up in chair today, sister Macie at bedside and she is happy with this progress however patient still nonverbal and noncommunicative which is her baseline No fever. She still have a WBC of 13.4 K. And she remains on Augmentin. Also she got 1 dose of Lasix and a repeat [facility] x[facility]ray [facility] a daughter for outpatient palliative consult and she agrees Objective - Vital Signs Vital signs: Vital Signs Temp 98.0 F 01/11/21 12:38 Pulse 75 01/11/21 12:38 Resp 17 01/11/21 12:38 BP 125/72 01/11/21 12:38 Pulse Ox 97 03/17/21 12:38 Intake & Output 01/10/21 01/11/21 01/11/21 18:59 06:59 18:59 Intake Total 300 Balance 300 Weight 69.672 kg Intake: Oral 300 Other: Voiding Method Bedside Commode Diaper Diaper Diaper # Voids 2 4 # Bowel Movements 1 - Exam -GENERAL: The patient is calm, nonverbal, does not follow command. Obese HEENT: Pupils are round and equally reacting to light. EOMI. No scleral icterus. No conjunctival pallor. Normocephalic, atraumatic. No pharyngeal erythema. No thyromegaly. CARDIOVASCULAR: S1 and S2 present. No murmurs, rubs, or gallops. Denies PULMONARY: Chest is clear to auscultation, no wheezing or crackles. ABDOMEN: Soft, nontender, nondistended, normoactive bowel sounds. No palpable organomegaly. MUSCULOSKELETAL: No joint swelling or deformity. EXTREMITIES: No cyanosis, clubbing, or pedal edema. NEUROLOGICAL: Gross neurological examination did not reveal any focal deficits. SKIN: No rashes. No petechiae - Labs CBC & Chem 7: 01/11/21 05:25 01/09/21 13:21 Labs: Abnormal Lab Results - Last 24 Hours (Table) 01/11/21 Range/Units 05:25 WBC 13.43 H (4.50-10.00) X 10*3/uL MCV 101.9 H (80.0-97.0) fL MCH 32.4 H (27.0-32.0) pg MCHC 31.8 L (32.0-37.0) g/dL Immature Gran # 0.06 H (0.00-0.04) X 10*3/uL Neutrophils # 9.04 H (1.80-7.70) X 10*3/uL Monocytes # 1.86 H (0.20-1.00) X 10*3/uL Assessment and Plan Assessment: Fall from wheelchair Generalized weakness with family inability taking care of her, needs placement Leukocytosis, rule out infection Down syndrome advanced dementia and possible end-stage dementia, patient is nonverbal and she has a legal guardian Obesity Plan: This is a pleasant 55 years old female with Down syndrome, nonverbal comes with fall. Consult manager social services for possible placement as family are and able to take care of her. Patient was possible infection, mild, unknown source possible pneumonia. With leukocytosis. Augmentin is a started Continue same treatment. Continue with symptomatic treatment. Resume home medication. Monitor lytes and vitals. DVT and GI prophylaxis. Further recommendations depends on the clinical course of the patient DVT prophylaxis: Subcutaneous heparin GI Prophylaxis: no need PT/OT: no need, pt can not participate or follows commands, needs placement Prognosis is guarded I think patient is eligible for palliative team evaluation as inpatient or outpatient and family agree. Already discussed with family/sister Macie
--- NOTE | 2021-01-11 17:01 | CDI ---
Documentation Clarification Form Date: 01/11/2021 04:43:01 PM From: Anh Bustillo RN, CCDS Admit Date: 01/09/2021 04:17:00 PM Patient Name: Ute Lin Visit Number: [id number] Discharge Date: ATTENTION: The Clinical Documentation Specialists (CDI) and [facility] Coding Staff appreciate your assistance in clarifying documentation. Please respond to the clarification below the line at the bottom and electronically sign. The CDI & [facility] Coding staff will review the response and follow-up if needed. Please note: Queries are made part of the Legal Health Record. If you have any questions, please contact the author of this message via ITS. Dr. Valeriano Esteban A pressure ulcer was documented in the nursing wound assessment. Please render your opinion on the pressure ulcer, stage and present on admission indicators. History/Risk Factors: Down syndrome, dementia, Falls Clinical Indicators: 55-year-old female admitted to ED on 01/09 after fall from chair. She is nonverbal ad require assist with all activity of daily living. She is incontinent of urine/stool Location: right buttock documented 03/12 Wound description: Stage 2 Warm, moist skin color: Erythema Treatment: Monitor skin integrity per protocol Assist with all ADL Elements for accurate and compliant documentation of an ulcer: *The location/laterality of the ulcer *Etiology (decubitus/pressure, diabetic, PVD) *Stage I-IV, Unstageable, Suspected Deep Tissue Injury (To the deepest stage) *If the ulcer was present at admission (POA) or occurred after admission In your professional opinion, can you please clarify the diagnosis, location, laterality and whether present on admission (POA): Stage 1 Pressure/Decubitus Ulcer (intact skin, non-blanching redness of local area) Stage 2 Pressure/Decubitus Ulcer (Partial thickness, loss of dermis, pink wound bed Other condition, please specify Unable to determine Please indicate etiology of pressure ulcer (if known). (Last Revision: July 2017) no pressure ulcer MTDD
--- NOTE | 2021-01-11 17:59 | XR ---
EXAMINATION TYPE: XR chest 1V DATE OF EXAM: 01/11/2021 COMPARISON: 01/09/2021 HISTORY: Increased white blood cells TECHNIQUE: Single view FINDINGS: There is small linear density left lung base. Right lung is clear. There is no heart failur e. Heart size is normal. There are no hilar masses. Bony thorax appears intact. IMPRESSION: Mild subsegmental atelectasis left lung base increased compared to old exam.
[2021-01-11] MEDS: MONTELUKAST 10 MG TAB PO SCH (20:18)
[2021-01-12 05:07] VITALS: TEMP 97.9
[2021-01-12] MEDS: LEVOTHYROXINE 125 MCG TAB PO SCH (06:26)
[2021-01-12] MEDS: AMOXIC-POT CLAV 875-125MG 1 EACH TAB PO SCH (09:13)
[2021-01-12] MEDS: HEPARIN SODIUM,PORCINE 5,000 UNIT/ML 1 ML VIAL SQ SCH (09:13)
--- NOTE | 2021-01-12 09:32 | CDI ---
Documentation Clarification Form Date: 01/12/2021 08:55:56 AM From: Anh Bustillo RN, CCDS Admit Date: 01/09/2021 04:17:00 PM Patient Name: Ute Lin Visit Number: [id number] Discharge Date: ATTENTION: The Clinical Documentation Specialists (CDI) and [facility] Coding Staff appreciate your assistance in clarifying documentation. Please respond to the clarification below the line at the bottom and electronically sign. The CDI & [facility] Coding staff will review the response and follow-up if needed. Please note: Queries are made part of the Legal Health Record. If you have any questions, please contact the author of this message via ITS. Dr. Bal E Sheet Advanced Dementia or end-stage was documented in the H/P and subsequent progress notes. Please further specify type if known. Patient history/risk factors: Down syndrome Clinical indicators: 55-year-old female present to ED on 01/09 after fall from chair. She is nonverbal at baseline, incontinent of urine and stool and is unable to perform daily activity of living. 01/09 Vital signs on admission: 107/72 72 18 99.0 98 % RA 01/09 Labs: WBC 16.3 01/09 UA: Trace Leukocyte Esterase 01/09 CXR: Correlate for CHF exacerbation as there is mild cardiomegaly with mild central vascular congestion. 01/11 CXR: Mild subsegmental atelectasis left lung base increased. Treatment: Monitor Labs: CBC with/diff daily x3 Occupational Therapist, Physical Therapist evaluation and treatment Neurological assessment per protocol Assist with ADLs (maximum assistance) In your professional opinion, can you please specify the type of Dementia if known? Alzheimers disease (specify if early (presenile) or late (senile) onset) Alzheimers disease in a patient with Down syndrome (further specify) Senile (specify if with or without confusional state) Lewy body Other condition or cause of dementia, please specify Unable to determine Please indicate any behavioral disturbances associated with the condition (such as aggression, combative, violent, or wandering) (Last Revision: July 2017) Alzheimers disease in a patient with Down syndrome MTDD
--- NOTE | 2021-01-12 11:11 | P.DS ---
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 patient is nonverbal and she has a legal guardian Generalized weakness with family inability taking care of her, needs placement Fall from wheelchair Leukocytosis, with slightly elevated immature granulocyte and monocytes blood disease is suspected and outpatient hematology follow-up is recommended Mild subsegmental left lung base of atelectasis, less likely pneumonia Down syndrome Obesity Hospital course: This is a pleasant 55 years old female with past medical history of Down syndrome, patient is known verbal at baseline and she has a guardian. She follows up with Dr. Pratt is her canine service instructor trainer and PCP. Patient is poor historian and could not provide information and history was taken from her sister Macie at bedside. patient is non-verbal for long time, over the last few months also she becoming more difficult to take care for, she does not ask for food if she is hungry, she does not ask to be cleaned and she does not recognize the people around her. As per sister patient fell from her chair and family cannot take care of her and they ask for placement As per my conversation with the sister this is mildly end-stage dementia given her history of Down syndrome at 55 years old, because of this we recommend outpatient palliative care consult, I discussed with the sister Macie and she agrees Labs showed leukocytosis of 16.3 K. immature granulocyte is 0.06 which is slightly elevated and monocytes slightly elevated at 1.86. Because of this hematological follow-up as an outpatient as recommended Rest of CBC, BMP is unremarkable. Urine analysis is not suspicious of infection and procalcitonin is slightly elevated at 0.15, mild infection is suspected and patient is doing well after starting Augmentin, she is more awake and interactive than admission Problems and management plan were discussed with the patient and he verbalized understanding and acceptance Patient was found stable and can be discharged home however he needs follow-up as an outpatient. Patient was instructed to follow up with PCP within one week and patient agrees Physical exam -Gen: patient is a AAOx0, does not follow commands, no distress. Obese CVS: S1-S2, RRR, no murmur Lungs: B/L CTA, no wheezing Abdomen: soft, no distention, no tenderness, positive bowel sounds Extremity: no leg edema or induration Time spent more than 35 minutes Patient Condition at Discharge: Good Plan - Discharge Summary Discharge Rx Participant: No New Discharge Prescriptions: New Amoxic-Pot Clav 875-125Mg [Augmentin 875-125] 1 each PO Q12HR 5 Days #10 tab Heparin Sodium,Porcine [Heparin Sodium] 5,000 unit SQ Q12HR vial Continue Simvastatin [Zocor] 20 mg PO HS Montelukast [Singulair] 10 mg PO HS Levothyroxine Sodium [Synthroid] 125 mcg PO DAILY Albuterol Nebulized [Ventolin Nebulized] 2.5 mg INHALATION RT-BID Discontinued Multivitamin/Iron/Folic Acid [Centrum Women Tablet] 1 tab PO DAILY Potassium Chloride ER [K-Dur 10] 10 meq PO DAILY Discharge Medication List Albuterol Nebulized [Ventolin Nebulized] 2.5 mg INHALATION RT-BID 01/09/21 [History] Levothyroxine Sodium [Synthroid] 125 mcg PO DAILY 01/09/21 [History] Montelukast [Singulair] 10 mg PO HS 01/09/21 [History] Simvastatin [Zocor] 20 mg PO HS 01/09/21 [History] Amoxic-Pot Clav 875-125Mg [Augmentin 875-125] 1 each PO Q12HR 5 Days #10 tab 01/12/21 [Rx] Heparin Sodium,Porcine [Heparin Sodium] 5,000 unit SQ Q12HR vial 01/12/21 [Rx] Follow up Appointment(s)/Referral(s): Gamal Haddad MD [STAFF PHYSICIAN] - 1 Week (for leukocytosis) Juan Pratt MD [Primary Care Provider] - 1-2 days Activity/Diet/Wound Care/Special Instructions: regular diet as tolerated activity is restricted till you see your doctor Discharge Disposition: TRANSFER TO SNF/ECF
[2021-01-12 11:22] LABS: Basophils # (A) 0.09 X 10*3/uL (0.00-0.10); Basophils % (A) 0.8 %; Eosinophils # (A) 0.19 X 10*3/uL (0.04-0.35); Eosinophils % (A) 1.6 %; HCT 43.5 % (37.2-46.3); HGB 13.9 g/dL (12.0-15.0); Lymphocytes # (A) 2.08 X 10*3/uL (0.90-5.00); Lymphocytes % (A) 17.9 %; MCH 32.9 pg (27.0-32.0); MCV 102.8 fL (80.0-97.0); Mean Platelet Volume 11.9 fL (9.5-12.2); Monocytes # (A) 1.49 X 10*3/uL (0.20-1.00); Monocytes % (A) 12.8 %; Neutrophils # (A) 7.75 X 10*3/uL (1.80-7.70); Neutrophils % (A) 66.5 %; Platelet Count 223 X 10*3/uL (140-440); RBC 4.23 X 10*6/uL (4.10-5.20); RDW 14.4 % (11.5-14.5); WBC 11.65 X 10*3/uL (4.50-10.00)
[2021-01-12 12:40] VITALS: BP 120/77; PULSE 74; RESP 15
== END 2021-01-12 14:25 | DRG 57 ==
LOC: EC 12:22 → 4SSUR 16:17 → 5NMEDONC 01-10 04:47
PROVIDERS: ADMIT Internal Medicine; ATTEND Internal Medicine
DX: G30.9 Alzheimer's disease, unspecified (principal); J98.11 Atelectasis; F02.80 Dementia in other diseases classified elsewhere, unspecified severity, without behavioral disturbance, psychotic disturbance, mood disturbance, and anxiety; D72.829 Elevated white blood cell count, unspecified; Z66 Do not resuscitate; Z20.822 Contact with and (suspected) exposure to COVID-19; S00.31XA Abrasion of nose, initial encounter; R53.1 Weakness; Q90.9 Down syndrome, unspecified; R32 Unspecified urinary incontinence; R15.9 Full incontinence of feces; E66.9 Obesity, unspecified; Z68.31 Body mass index [BMI] 31.0-31.9, adult; E03.9 Hypothyroidism, unspecified; E78.00 Pure hypercholesterolemia, unspecified; R29.6 Repeated falls; Z79.890 Hormone replacement therapy; Z79.899 Other long term (current) drug therapy; W05.0XXA Fall from non-moving wheelchair, initial encounter
CPT/HCPCS: 36415; 71045; 71046; 80048; 81001; 84145; 85025; 87635; 93005; 99285

== ENCOUNTER 2023-06-01 14:58 | Emergency (ER) | payer MEDICARE, BC ==
[2023-06-01 15:09] VITALS: TEMP 99.4
--- NOTE | 2023-06-01 16:23 | ED ---
General Adult HPI - General Chief complaint: Upper Respiratory Infection Stated complaint: SOB,Covid + Time Seen by Provider: 06/01/23 15:43 Source: family, EMS, RN notes reviewed, old records reviewed Mode of arrival: EMS Limitations: altered mental status - History of Present Illness Initial comments: 57-year-old female presenting for evaluation of hypoxia. Patient history is obtained from paramedics and the patient's mother who is at bedside. Patient has history of Down syndrome and dementia. She has been prescribed oxygen but does not like to wear this. She was diagnosed with coronavirus approximately one week ago. She's had some mild cough and congestion. Apparently at the half-way she resides she had a oxygen saturation the 70s. During transport by paramedics she was around 90% and this remained stable while in the emergency department without supplement oxygen. Patient herself is unable to contribute at all to the history. His been no vomiting. No fever. - Related Data Home Medications Medication Instructions Recorded Confirmed Albuterol Nebulized [Ventolin 2.5 mg INHALATION RT-BID 01/09/21 01/09/21 Nebulized] Levothyroxine Sodium [Synthroid] 125 mcg PO DAILY 01/09/21 01/09/21 Montelukast [Singulair] 10 mg PO HS 01/09/21 01/09/21 Simvastatin [Zocor] 20 mg PO HS 01/09/21 01/09/21 Previous Rx's Medication Instructions Recorded Amoxic-Pot Clav 875-125Mg 1 each PO Q12HR 5 Days #10 tab 01/12/21 [Augmentin 875-125] Heparin Sodium,Porcine (1 ml) 5,000 unit SQ Q12HR vial 01/12/21 [Heparin Sodium] Allergies Allergy/AdvReac Type Severity Reaction Status Date / Time No Known Allergies Allergy Verified 06/01/23 15:09 Review of Systems ROS Statement: Those systems with pertinent positive or pertinent negative responses have been documented in the HPI. ROS Other: All systems not noted in ROS Statement are negative. Past Medical History Past Medical History: Asthma, Dementia, Pneumonia, Thyroid Disorder Additional Past Medical History / Comment(s): Down's syndrome/nonverbal/incontinence of urine and stool/needs to be fed and offered water and place pills in mouth then offer water, falls/balance issues-normally walks with one assist but lately 2 assists and pt leans, hypokalemia. History of Any Multi-Drug Resistant Organisms: None Reported Past Surgical History: No Surgical Hx Reported Additional Past Surgical History / Comment(s): Transesophageal echocardiogram. Past Anesthesia/Blood Transfusion Reactions: No Reported Reaction Past Psychological History: No Psychological Hx Reported Smoking Status: Never smoker - Past Family History Father Family Medical History: Cancer Additional Family Medical History / Comment(s): Father of lung cancer at the age of 52 yrs. Mother Family Medical History: Congestive Heart Failure (CHF) Additional Family Medical History / Comment(s): Mother of chf at the age of 79yrs. General Exam Limitations: altered mental status General appearance: alert, in no apparent distress Head exam: Present: atraumatic, normocephalic Eye exam: Present: normal appearance, PERRL ENT exam: Present: normal exam Neck exam: Present: normal inspection. Absent: tenderness Respiratory exam: Present: wheezes, rhonchi. Absent: respiratory distress Cardiovascular Exam: Present: regular rate, normal rhythm GI/Abdominal exam: Present: soft. Absent: distended Extremities exam: Present: normal inspection, normal capillary refill Neurological exam: Present: alert. Absent: motor sensory deficit Skin exam: Present: warm, dry, intact. Absent: cyanosis, diaphoretic Course Vital Signs 06/01/23 06/01/23 15:04 16:09 Temperature 99.4 F Pulse Rate 61 60 Respiratory 18 18 Rate Blood Pressure 110/65 101/81 O2 Sat by Pulse 92 L 92 L Oximetry Medical Decision Making - Medical Decision Making Was pt. sent in by a medical professional or institution (, PA, POLICY ADVISOR, urgent care, hospital, or half-way...) When possible be specific @ -No Did you speak to anyone other than the patient for history (EMS, parent, family, police, friend...)? What history was obtained from this source @ -No Did you review nursing and triage notes (agree or disagree)? Why? @ -I reviewed and agree with nursing and triage notes Were old charts reviewed (outside hosp., previous admission, EMS record, old EKG, old radiological studies, urgent care reports/EKG's, half-way records)? Report findings @ -No old charts were reviewed Differential Diagnosis (chest pain, altered mental status, abdominal pain women, abdominal pain men, vaginal bleeding, weakness, fever, dyspnea, syncope, headache, dizziness, GI bleed, back pain, seizure, CVA, palpatations, mental health, musculoskeletal)? @ Coronavirus, pneumonia, bronchitis, upper respiratory infection EKG interpreted by me (3pts min.). @ -As above X-rays interpreted by me (1pt min.). @Devine view chest obtained, no pneumothorax, no focal pneumonia CT interpreted by me (1pt min.). @ -None done U/S interpreted by me (1pt. min.). @ -None done What testing was considered but not performed or refused? (CT, X-rays, U/S, labs)? Why? @ -None What meds were considered but not given or refused? Why? @ -None Did you discuss the management of the patient with other professionals (professionals i.e. , PA, POLICY ADVISOR, lab, RT, psych nurse, social professionals, diesel fleet mechanic, teacher, probation and parole officer, case managers)? Give summary @ -No Was smoking cessation discussed for >3mins.? @ -No Was critical care preformed (if so, how long)? @ -No Were there social determinants of health that impacted care today? How? (Homelessness, low income, unemployed, alcoholism, drug addiction, transportation, low edu. Level, literacy, decrease access to med. care, shelter, rehab)? @ -No Was there de-escalation of care discussed even if they declined (Discuss DNR or withdrawal of care, Hospice)? DNR status @ -No What co-morbidities impacted this encounter? (DM, HTN, Smoking, COPD, CAD, Cancer, CVA, ARF, Chemo, Hep., AIDS, mental health diagnosis, sleep apnea, morbid obesity)? @ Asthma, Down syndrome Was patient admitted / discharged? Hospital course, mention meds given and route, prescriptions, significant lab abnormalities, going to OR and other pertinent info. @ -57-year-old female with chief complaint of hypoxia at the half-way. Patient is not hypoxic there is no respiratory distress. She does have multiple factors contributing to her poor respiration including body habitus, history of asthma and Down syndrome. Patient has a normal respiratory rate and oxygenation between 90 and 95%. No tachypnea. She is not tachycardic. X-ray is clear. Undiagnosed new problem with uncertain prognosis? @ -No Drug Therapy requiring intensive monitoring for toxicity (Heparin, Nitro, Insulin, Cardizem)? @ -No Were any procedures done? @ -No Diagnosis/symptom? @ Coronavirus Acute, or Chronic, or Acute on Chronic? @Acute Uncomplicated (without systemic symptoms) or Complicated (systemic symptoms)? @ -default Side effects of treatment? @ -No Exacerbation, Progression, or Severe Exacerbation? @ -No Poses a threat to life or bodily function? How? (Chest pain, [place], SD, pneumonia, PE, COPD, DKA, ARF, appy, cholecystitis, CVA, Diverticulitis, Homicidal, Suicidal, threat to staff... and all critical care pts) @ -[Yes, coronavirus, low risk at this time Disposition Clinical Impression: Upper respiratory tract infection, COVID-19 Disposition: HOME SELF-CARE Condition: Fair Instructions (If sedation given, give patient instructions): Upper Respiratory Infection (ED), COVID-19 (Coronavirus Disease 2019) (ED) Is patient prescribed a controlled substance at d/c from ED?: No Referrals: Kennedy Holguin DO [Primary Care Provider] - 1-2 days Time of Disposition: 16:23
--- NOTE | 2023-06-01 16:35 | XR ---
EXAMINATION TYPE: XR chest 1V portable DATE OF EXAM: 06/01/2023 COMPARISON: 01/11/2021 INDICATION: Cough short of breath over the TECHNIQUE: Single frontal view of the chest is obtained. FINDINGS: The heart size is normal. The pulmonary vasculature is normal. The lungs are clear. Typical peripheral infiltrates to correlate with covid are not evident on this exam. IMPRESSION: 1. No acute pulmonary process radiographically apparent.
[2023-06-01 19:08] VITALS: BP 120/82; PULSE 95; RESP 16
== END 2023-06-01 20:18 | disposition home or self-care (01) ==
LOC: EC 14:58
DX: J06.9 Acute upper respiratory infection, unspecified (principal); U07.1 COVID-19; J45.909 Unspecified asthma, uncomplicated; E07.9 Disorder of thyroid, unspecified; Z79.890 Hormone replacement therapy; Z79.899 Other long term (current) drug therapy
CPT/HCPCS: 71045; 99285